=== PATIENT | male | born 1960 | race Two or more races ===

== ENCOUNTER 2022-04-10 07:24 | Emergency (ER) | payer OTHER ==
[~2022-04-10] VITALS: Ht 172.7 cm; Wt 74.8 kg
--- NOTE | 2022-04-10 07:38 | NUR ---
RECEVED PT 62 YRS MALE FROM HOME C/O ANXIETY AND PALPATION AWAKE AND ALERT NO SOB
[2022-04-10 09:15] VITALS: BP 113/77
== END 2022-04-10 09:00 | disposition home or self-care (01) ==
LOC: ER 07:29
DX: F41.9 Anxiety disorder, unspecified (principal); R00.2 Palpitations; I10 Essential (primary) hypertension; E11.9 Type 2 diabetes mellitus without complications